=== PATIENT | female | born 1975 | race Asian ===

== ENCOUNTER 2018-04-20 15:39 | Outpatient (CLI) | payer BC ==
--- NOTE | 2018-04-21 09:19 | XRAY Report ---
Reason: LT KNEE PAIN Procedure Date: 04/20/2018 Accession Number: [id number] / [id number] Procedure: XR - Knee 3 View LT CPT Code: FULL RESULT: EXAM: LEFT KNEE RADIOGRAPHY EXAM DATE: 04/20/2018 03:53 PM. CLINICAL HISTORY: Left knee pain. COMPARISON: None. TECHNIQUE: 3 views. FINDINGS: Bones: Normal. No fractures or bone lesions. Joints: Subtle soft tissue density is seen on the sunrise view in the joint compartment along the lateral patellar facet. There is a small joint effusion. No subluxations. Mild joint space narrowing of the weightbearing compartments, medial greater than lateral. Soft Tissues: Normal. No soft tissue swelling. IMPRESSION: Small joint effusion with calcific density seen intra-articularly. RADIA
== END 2018-04-20 15:40 | disposition home or self-care (01) ==
LOC: DI 15:39
PROVIDERS: ATTEND Physician Assistant
DX: M25.462 Effusion, left knee (principal); M25.862 Other specified joint disorders, left knee

== ENCOUNTER 2018-08-05 08:57 | Outpatient (CLI) | payer BC ==
--- NOTE | 2018-08-05 14:31 | Mammography Report ---
Reason: GALACTORRHEA Procedure Date: 08/05/2018 Accession Number: [id number] / [id number] Procedure: MARCIANO - Diagnostic Dig Bilat CPT Code: FULL RESULT: EXAM: Diagnostic Dig Bilat DATE: 08/05/2018 9:49 AM CLINICAL HISTORY: Right breast milky discharge since Thanksgiving. Palpable lump in the right breast axilla. Diagnostic exam. History of early menses. TECHNIQUE: Bilateral CC, laterally exaggerated CC and MLO views as well as a right ML view are obtained. Focused ultrasound was performed of the right axillary region. COMPARISON: 11/16/2017 through 05/08/2017. FINDINGS: The breasts demonstrate heterogeneously dense fibroglandular parenchyma bilaterally. No suspicious architectural distortion, calcifications or masses are identified in either breast. The palpable axillary finding is not included in the mammographic views. Therefore, focused ultrasound of the right axilla was performed. This demonstrated normal axillary tissue with no abnormal mass or collection. IMPRESSION: Negative examination RECOMMENDATION: Recommend routine annual Screening mammography unless otherwise clinically indicated. BIRADS CATEGORY 1: Negative STANDARD QUALIFYING STATEMENTS: 1. This examination was not reviewed with the aid of Computer-Aided Detection (CAD). 2. A negative or benign imaging report should not delay biopsy if clinically suspicious findings are present. Consider surgical consultation if warrented. More than 5% of cancers are not identified by imaging. 3. Dense breasts may obscure an underlying neoplasm. 4. This examination was reviewed with the aid of 3D imaging (tomography).
== END 2018-08-05 08:58 | disposition home or self-care (01) ==
LOC: DI 08:57
PROVIDERS: ATTEND Specialist
DX: N64.89 Other specified disorders of breast (principal); O92.6 Galactorrhea
CPT/HCPCS: 76642; 77062; 77066

== ENCOUNTER 2019-08-25 09:16 | Outpatient (CLI) | payer OTHER ==
--- NOTE | 2019-08-25 11:55 | Mammography Report ---
Reason: RT NIPPLE DISCHARGE Procedure Date: 08/25/2019 Accession Number: [id number] / [id number] Procedure: MARCIANO - Diagnostic Dig Bilat CPT Code: Final Report FULL RESULT: EXAM: Diagnostic Dig Bilat, Breast Unilateral Limited ultrasound right DATE: 08/25/2019 10:36 AM CLINICAL HISTORY: Bloody right nipple discharge COMPARISON: 08/05/2018, 11/16/2017, 05/18/2017 and 05/08/2017 MAMMOGRAM: TECHNIQUE: (B) - Bilateral CC and MLO views were obtained. Additional views right breast. PARENCHYMAL PATTERN: (D) - The breasts demonstrate heterogeneously dense fibroglandular parenchyma bilaterally. FINDINGS: Left breast: There are no suspicious masses, calcifications, or areas of distortion. No significant interval change. Right breast: Slightly asymmetric small soft tissue density in the immediate retroareolar right breast MLO iris 58, ML iris 29, CC iris 29. Otherwise no architectural distortion, skin thickening, suspicious microcalcifications or other finding. RIGHT BREAST ULTRASOUND: TECHNIQUE: Real time scanning by the dust box worker of the immediate retroareolar right breast with me present with saved static images reviewed. The left retroareolar region was scanned for comparison. FINDINGS: No cystic or solid mass, abnormal fluid collection, abnormal vascularity, or other finding is seen. IMPRESSION: Probably Benign. BI-RADS category 3 right breast. Negative left breast. RECOMMENDATION: (6MOS) - Recommend 6 month follow-up exam. Suggest follow-up right breast mammogram and ultrasound in 6 months if bloody nipple discharge persists. Consider surgical referral for persistent bloody nipple discharge. BI-RADS CATEGORY: (3) - Probably Benign. STANDARD QUALIFYING STATEMENTS: 1. This examination was not reviewed with the aid of Computer-Aided Detection (CAD). 2. A negative or benign imaging report should not preclude biopsy if clinically suspicious findings are present. 3. Dense breasts may obscure an underlying neoplasm. 4. This examination was reviewed with the aid of 3D breast imaging (tomosynthesis).
== END 2019-08-25 09:17 | disposition home or self-care (01) ==
LOC: DI 09:16
PROVIDERS: ATTEND Family Medicine
DX: N64.52 Nipple discharge (principal)
CPT/HCPCS: 76642; 77066

== ENCOUNTER 2019-10-14 15:31 | Outpatient (CLI) | payer OTHER | END 2019-10-14 15:32 | disposition home or self-care (01) | LOC: LAB 15:31 | PROVIDERS: ATTEND Surgery | DX: Z01.812 Encounter for preprocedural laboratory examination (principal); N63.0 Unspecified lump in unspecified breast; N64.52 Nipple discharge | CPT/HCPCS: 81599 ==

== ENCOUNTER 2019-10-18 07:26 | Day surgery (SDC) | payer OTHER ==
[2019-10-18] MEDS ORDERED: fentaNYL 100 MCG/2 ML VIAL IVP ONE (07:27)
[2019-10-18] MEDS ORDERED: KETAMINE 500 MG/10 ML VIAL IVP ONE (07:27)
[2019-10-18] MEDS ORDERED: MIDAZOLAM 2 MG/2 ML VIAL IVP ONE (07:27)
[2019-10-18] MEDS ORDERED: PROPOFOL 200 MG/20 ML VIAL IVP ONE (07:27)
[2019-10-18 07:31] LABS: HCG UR QUAL NEGATIVE
--- NOTE | 2019-10-18 07:34 | ANESTHESIA ---
Pre-Anesthesia VS, & Labs - Diagnosis right breast mass, drainage - Procedure right breast biopsy Vital Signs: Temp Pulse Resp BP Pulse Ox 36.6 C 71 12 112/92 H 99 10/18/19 07:30 10/18/19 07:30 10/18/19 07:30 10/18/19 07:30 10/18/19 07:30 Height 5 ft 2 in Weight (kg) 74 kg - NPO >8 hours - Is Patient ?: No Home Medications and Allergies Home Medications: Ambulatory Orders Topiramate [Topamax] 25 mg PO 10/17/19 hydroCHLOROthiazide [Hydrochlorothiazide] 25 mg PO 10/17/19 Topiramate [Topamax] 25 mg PO 10/17/19 hydroCHLOROthiazide [Hydrochlorothiazide] 25 mg PO 10/17/19 Allergies/Adverse Reactions: Allergies Allergy/AdvReac Type Severity Reaction Status Date / Time No Known Drug Allergies Allergy Verified 10/17/19 14:23 Anes History & Medical History - Anesthetic History Anesthesia Complications: reports: Post-Operative Nausea/Vomiting, Other-see comment ("difficulty waking up") Family history of Anesthesia Complications: Denies Family history of Malignant Hyperthermia: Denies - Medical History Cardiovascular: reports: Hypertension Pulmonary: reports: None Gastrointestinal: reports: None Urinary: reports: None Neuro: reports: None Musculoskeletal: reports: None Endocrine/Autoimmune: reports: None Blood Disorders: reports: None Skin: reports: None Smoking Status: Never smoker Psychosocial: reports: No issues indicated - Surgical History General: Cholecystectomy Eyes Ears Nose Throat (EENT): Tonsil/Adenoidectomy Orthopedic: ACL reconstruction, Rotator cuff repair Exam General: Alert, Oriented x3, Cooperative, No acute distress Dental: WNL Mouth Openin Fingerbreadth Mallampati classification: II Thyromental Distance: 4-6 cm Respiratory: Lungs clear, Normal breath sounds, No respiratory distress, No accessory muscle use Cardiovascular: Regular rate, Normal S1, Normal S2, No murmurs Abdomen: Normal bowel sounds, Soft, No tenderness, No hepatospenomegaly, No masses Extremities: No clubbing, No cyanosis, No edema, Normal pulses, No tenderness/swelling Neurological: Normal gait, Normal speech, Strength at 5/5 X4 ext, Normal tone, Sensation intact, Cranial nerves 3-12 NL, Reflexes 2+ Mental/Cognitive Status: Alert/Oriented X3, Normal for patient Cognitive Status: Within normal limits Plan Anesthesia Type: General Consent for Procedure(s) Verified and Reviewed: Yes Code Status: Attempt Resuscitation ASA classification: 2-Mild systemic disease Is this case an emergency?: No
[2019-10-18] MEDS ORDERED: SCOPOLAMINE PATCH TOP ONE (07:43)
[2019-10-18] MEDS ORDERED: LACTATED RINGERS 1,000 ML IV ONE ×2 (07:54→10:12)
[2019-10-18] MEDS ORDERED: BUPIVACAINE 0.25% PF 30 ML VIAL ONE (08:11)
[2019-10-18] MEDS ORDERED: LIDOCAINE 1% 50 ML MDV SUBQ ONE ×2 (08:42)
[2019-10-18] MEDS ORDERED: BUPIVACAINE 0.25% PF 30 ML VIAL SUBQ ONE ×2 (08:42)
[2019-10-18] MEDS ORDERED: LIDOCAINE 1% 50 ML MDV ONE (08:44)
[2019-10-18] MEDS ORDERED: ACETAMINOPHEN 325 MG TABLET PO PRN (09:33)
[2019-10-18] MEDS ORDERED: oxyCODONE 5 MG TABLET PO PRN (09:33)
[2019-10-18] MEDS ORDERED: IBUPROFEN 600 MG TABLET PO PRN (09:33)
[2019-10-18] MEDS ORDERED: ONDANSETRON 4 MG/2 ML VIAL IVP PRN (09:33)
[2019-10-18] MEDS ORDERED: ONDANSETRON 4 MG/2 ML VIAL ONE (09:54)
[2019-10-18 11:21] VITALS: BP 95/64
--- NOTE | 2019-10-18 11:24 | PROCEDURE REPORT ---
DATE OF SERVICE: 10/18/2019 Physician: Gibson Craig MD DATE OF SURGERY: 10/18/2019. PREOPERATIVE DIAGNOSIS: Persistent right breast bloody nipple discharge. Possible mass based on ultrasound. POSTOPERATIVE DIAGNOSIS: Persistent right breast bloody nipple discharge. Possible mass based on ultrasound. PROCEDURE PERFORMED: Right breast biopsy. SURGEON: Alexandru Craig MD CUSTOMER SERVICE CASHIER: None. ANESTHESIA: Monitored anesthesia care, IV sedation, local anesthesia with lidocaine and Marcaine. SPECIMEN: Sent permanent for pathology. ESTIMATED BLOOD LOSS: Less than 10 mL DRAINS: None. COMPLICATIONS: None. INDICATIONS FOR PROCEDURE: The patient is a healthy 43-year-old who has had bloody nipple discharge for approximately 1 year. Mammogram was unremarkable. Ultrasound revealed a possible mass. She has daily drainage. The drainage is from a specific duct. Excisional biopsy was recommended. Risks discussed. Alternatives discussed. All questions answered and consent obtained. DESCRIPTION OF PROCEDURE: The patient was properly identified, brought to the operating room and placed in supine position. Monitored anesthesia care was given. She was prepped and draped in a sterile fashion. Antibiotics were not given. Local anesthetic was given to the area. A lacrimal probe was placed down the duct with a bloody nipple discharge. A 3-4 cm circumareolar incision was made. Dissection proceeded with cutting current. A small flap around the areola and under the nipple towards the the duct of concern was raised. Approximately 3 x 3 cm of tissue with the involved duct was removed with cutting current. Hemostasis was assured. Deep dermis was closed with interrupted 3-0 Vicryl. Skin was closed with a running 4-0 Monocryl subcuticular suture. Dermabond was applied. She tolerated the procedure very well. TD: 10/18/2019 10:43 WU
== END 2019-10-18 07:27 | disposition home or self-care (01) ==
LOC: SDS 07:26
PROVIDERS: ATTEND Surgery
PROC: 0HBW0ZX Excision of Right Nipple, Open Approach, Diagnostic (ICD-10-PCS; principal; 2019-10-18 08:15)
DX: D24.1 Benign neoplasm of right breast (principal); I10 Essential (primary) hypertension
CPT/HCPCS: 19101; 81025; 88305; 88341; 88342; 88360; J3490; J7120

== ENCOUNTER 2020-08-17 10:31 | Outpatient (CLI) | payer OTHER ==
--- NOTE | 2020-08-20 12:40 | Mammography Report ---
BILATERAL DIGITAL DIAGNOSTIC MAMMOGRAM 3D/2D: 08/17/2020 CLINICAL: Follow-up biopsy. Comparison is made to exams dated: 08/25/2019 mammogram, 08/05/2018 mammogram, 11/16/2017 mammogram, 07/31 ultrasound, and 08/05/2018 ultrasound - [facility]. The tissue of both breast s is heterogeneously dense. This may lower the sensitivity of mammography. No significant masses, calcifications, or other findings are seen in either breast. There has been no significant interval change. IMPRESSION: NEGATIVE There is no mammographic evidence of malignancy. A 1 year screening mammogram is recommended. This exam was interpreted at Station ID: [id number]. NOTE: For mammograms, a report in lay terms will be sent to the patient. Approximately 15% of breast malignancies will not be visualized mammographically. In the management of a palpable breast mass, a negative mammogram must not discourage biopsy of a clinically suspicious lesion. Electronically Signed By: Ernesto Lora M.D., jr/dee:08/17/2020 11:13:53 ACR BI-RADS Category 1: Negative 3341F PARENCHYMAL PATTERN: (D) - The breast(s) demonstrate(s) heterogeneously dense fibroglandular parsusan ma. BI-RADS CATEGORY: (1) - 1 RECOMMENDATION: (ANNUAL) - Recommend routine annual screening mammography. [id number] 1 year screening LATERALITY: (B)
== END 2020-08-17 10:32 | disposition home or self-care (01) ==
LOC: DI 10:31
PROVIDERS: ATTEND Physician Assistant
DX: Z12.39 Encounter for other screening for malignant neoplasm of breast (principal); N63.10 Unspecified lump in the right breast, unspecified quadrant; N64.52 Nipple discharge

== ENCOUNTER 2022-10-14 11:28 | Outpatient (CLI) | payer OTHER ==
--- NOTE | 2022-10-14 14:23 | Ultrasound Report ---
PROCEDURE: Pelvic w/Transvaginal INDICATIONS: EXCESSIVE AND FREQUENT MENSTRUATION WITH REGULAR C TECHNIQUE: Real-time scanning was performed of the pelvic organs, with image documentation. Additional endovagi nal scanning was necessary due to incomplete visualization of the adnexal and endometrial structures by transabdominal scanning. COMPARISON: None. FINDINGS: Uterus: Uterus is retroverted and mildly enlarged in size at 8 4 4 x 6.0 x 6.6 cm. The myometrium i s heterogeneous. The endometrium measures 6 mm in combined thickness. There is an anterior subseros al fibroid measuring 1.4 x 1.3 x 1.3 cm Ovaries: The right ovary measures 1.6 x 1.1 x 1.4 cm, with a calculated ovarian volume of 1.3 cc. T he left ovary measures 2.3 x 1.4 x 1.5 cm, with a calculated ovarian volume of 2.6 cc. The ovaries h ave a normal sonographic appearance. Less than 12 follicles can be seen in each ovary. No adnexal m asses are seen. No cystic lesions measuring greater than 3 cm. Other: No pathologic free abdominal or pelvic fluid. IMPRESSION: The uterus is heterogeneous in appearance and mildly enlarged with an appearance suggesting possible adenomyosis. There is an incidental small subserosal fibroid. Otherwise unremarkable study. Reviewed by: Lenard Anderson MD on 10/14/2022 2:22 PM PDT Approved by: Lenard Anderson MD on 10/14/2022 2:22 PM PDT Station ID: [id number]
== END 2022-10-14 11:29 | disposition home or self-care (01) ==
LOC: DI 11:28
PROVIDERS: ATTEND Physician Assistant
DX: N85.2 Hypertrophy of uterus (principal); D25.2 Subserosal leiomyoma of uterus; N92.0 Excessive and frequent menstruation with regular cycle; N91.5 Oligomenorrhea, unspecified

== ENCOUNTER 2023-05-04 15:59 | Outpatient (CLI) | payer OTHER ==
[2023-05-04 16:11] LABS: BASOPHILS # (AUTO) 0.1 10^3/uL (0.0-0.1); BASOPHILS % (AUTO) 0.6 %; EOSINOPHILS # (AUTO) 0.5 10^3/uL (0.0-0.7); EOSINOPHILS % (AUTO) 5.1 %; HCT - HEMATOCRIT 38.5 % (37.0-47.0); HGB - HEMOGLOBIN 12.6 g/dL (12.0-16.0); LYMPHOCYTES # (AUTO) 1.8 10^3/uL (1.5-3.5); LYMPHOCYTES % (AUTO) 18.7 %; MEAN CORPUSCULAR HEMOGLOBIN 28.4 pg (27.0-31.0); MEAN CORPUSCULAR HGB CONC 32.7 g/dL (32.0-36.0); MEAN CORPUSCULAR VOLUME 86.7 fL (81.0-99.0); MEAN PLATELET VOLUME 8.8 fL (7.9-10.8); MONOCYTES # (AUTO) 0.6 10^3/uL (0.0-1.0); MONOCYTES % (AUTO) 6.5 %; NEUTROPHILS # (AUTO) 6.4 10^3/uL (1.5-6.6); PLT - PLATELET COUNT 317 10^3/uL (130-450); RED BLOOD COUNT 4.44 10^6/uL (4.20-5.40); RED CELL DISTRIBUTION WIDTH 13.1 % (12.0-15.0); WHITE BLOOD COUNT 9.4 x10^3/uL (4.8-10.8)
[2023-05-04 16:48] LABS: ALBUMIN 4.5 g/dL (3.2-5.5); ALBUMIN/GLOBULIN RATIO 1.7 (1.0-2.2); BILIRUBIN,TOTAL 0.3 mg/dL (0.2-1.0); CALCIUM 9.8 mg/dL (8.5-10.3); CREATININE 0.8 mg/dL (0.6-1.3); POTASSIUM 2.9 mmol/L (3.5-4.5); TOTAL PROTEIN 7.1 g/dL (6.4-8.9)
== END 2023-05-04 16:00 | disposition home or self-care (01) ==
LOC: LAB 15:59
PROVIDERS: ATTEND Obstetrics & Gynecology
DX: Z01.812 Encounter for preprocedural laboratory examination (principal); N93.9 Abnormal uterine and vaginal bleeding, unspecified
CPT/HCPCS: 36415; 80053; 85025; 86850; 86900; 86901

== ENCOUNTER 2023-05-05 07:21 | Day surgery (SDC) | payer OTHER ==
[2023-05-05] MEDS ORDERED: CELECOXIB 100 MG CAPSULE PO ONE (07:30)
[2023-05-05] MEDS ORDERED: ACETAMINOPHEN 500 MG TABLET PO ONE (07:30)
[2023-05-05] MEDS ORDERED: GABAPENTIN 400 MG CAPSULE ONE (07:30)
[2023-05-05] MEDS ORDERED: POTASSIUM CHLORIDE INJ 40 MEQ in SODIUM CHLORIDE 0.9% 500 ML IV ONE (07:33)
[2023-05-05] MEDS ORDERED: SCOPOLAMINE PATCH TOP ONE (07:37)
[2023-05-05 08:13] LABS: HCG UR QUAL NEGATIVE
[2023-05-05] MEDS ORDERED: LACTATED RINGERS 1,000 ML IV ONE ×2 (08:18→12:01)
[2023-05-05] MEDS ORDERED: PROPOFOL 200 MG/20 ML VIAL IVP ONE ×2 (08:24→11:54)
[2023-05-05] MEDS ORDERED: fentaNYL 100 MCG/2 ML VIAL ONE (08:24)
[2023-05-05] MEDS ORDERED: MIDAZOLAM 2 MG/2 ML VIAL ONE (08:24)
[2023-05-05] MEDS ORDERED: LIDOCAINE-PF 2% 10 ML AMP SUBQ ONE (08:24)
[2023-05-05] MEDS ORDERED: DEXAMETHASONE 4 MG/ML VIAL ONE (08:25)
[2023-05-05] MEDS ORDERED: KETOROLAC 30 MG/ML VIAL ONE (08:25)
[2023-05-05] MEDS ORDERED: ONDANSETRON 4 MG/2 ML VIAL ONE (08:25)
[2023-05-05] MEDS ORDERED: diphenhydrAMINE INJ 50 MG/ML VIAL ONE (08:25)
[2023-05-05] MEDS ORDERED: ROCURONIUM 50 MG/5 ML VIAL ONE ×2 (08:25→10:34)
[2023-05-05] MEDS ORDERED: METHYLENE BLUE 0.5% 50 MG/10 ML AMPULE ONE (08:28)
[2023-05-05] MEDS ORDERED: ESTROGENS, CONJUGATED CREAM 30 GM TUBE ONE (08:29)
[2023-05-05] MEDS ORDERED: VASOPRESSIN 20 UNIT/ML VIAL ONE (08:29)
[2023-05-05] MEDS ORDERED: LIDOCAINE 1%-EPI 1:100000 20 ML MDV ONE (08:29)
[2023-05-05] MEDS ORDERED: METOCLOPRAMIDE 10 MG/2 ML VIAL IVP PRN ×2 (08:50→12:31)
[2023-05-05] MEDS ORDERED: NALOXONE 0.4 MG/ML VIAL IVP PRN (08:50)
[2023-05-05] MEDS ORDERED: ONDANSETRON 4 MG/2 ML VIAL IVP PRN ×2 (08:50→12:29)
[2023-05-05] MEDS ORDERED: fentaNYL 100 MCG/2 ML VIAL IVP PRN (08:50)
[2023-05-05] MEDS ORDERED: ATROPINE ABBOJECT 1 MG/10 ML SYRINGE IVP PRN (08:50)
[2023-05-05] MEDS ORDERED: MORPHINE 2 MG/ML CARPUJECT IVP PRN (08:50)
[2023-05-05] MEDS ORDERED: ePHEDrine 50 MG/ML VIAL IVP PRN (08:50)
[2023-05-05] MEDS ORDERED: LACTATED RINGERS 1,000 ML IV SCH (09:00)
[2023-05-05] MEDS ORDERED: ceFAZolin 1 GM VIAL ONE (09:34)
[2023-05-05] MEDS ORDERED: LIDOCAINE 1%-EPI 1:100000 30 ML MDV SUBQ ONE (09:58)
[2023-05-05] MEDS ORDERED: GLYCOPYRROLATE 1 MG/5 ML VIAL ONE (10:36)
[2023-05-05] MEDS ORDERED: SUGAMMADEX 200 MG/2 ML VIAL IVP ONE (11:24)
--- NOTE | 2023-05-05 12:09 | OPERATIVE REPORT ---
Operative Report - General Procedure Date: 05/05/23 Planned Procedure: TVH Pre-Op Diagnosis: abnormal uterine bleeding Procedure Performed: TVH Post Op Diagnosis: same as above - Procedure Note Primary Surgeon: ronald Secondary Surgeon: trevor Anesthesia Provider: TRES Chris Anesthesia Technique: General ET tube Pathology: uterus and cervix IV Fluids (mL): 1,200 Estimated Blood Loss (mL): 100 Urine Output (mL): 125 Findings: small normal appearing cervix mirena in place normal uterus no significant adhesions no adnexal masses Complications: none - Other Other Information/Narrative: OPERATIVE NOTE Pre-operative diagnosis: 1. Dysfunctional uterine bleeding 2. Failed conservative measures Procedure: Total vaginal hysterectomy Post-operative diagnosis: Same as above Surgeon: Ronald Engineering Recruiter: Trevor Anesthesia: General Findings: EUA: small uterus, no adnexal masses, normal cervix Speculum: normal vagina, normal cervix Pathology: normal appearing small uterus Specimen: uterus and cervix Complications: None apparent EBL: 50 UOP: 150 Dispo: Pt to PACU in stable condition Procedure in detail: After risks benefits and alternatives, as well as indication for procedure and anticipated post-operative recovery course, were discussed with the patient informed consent was obtained and patient was taken to the operating theater where general anesthesia was administered without complication. Pt placed in dorsal lithotomy position, SCDs in place and running, and bimanual exam revealed the aforementioned findings. Pt prepared and draped in normal sterile fashion, yancey catheter in place. Weighted speculum placed in posterior vagina, and anterior lip of cervix grasped with tenaculum. 15cc lidocaine with epinephrine used to hydrodissect vaginal mucosa off of cervix. Incision made with scalpel from 10' - 2' and 4' - 8' at vaginocervical junction. bladder dissected off of lower uterine segment. posterior fornyx entered without difficulty. pelvis examined, normal. sequentially clamped, cut, and ligated the vaginal mucosa, uterosacral ligaments, uterine artery, broad ligament, round ligament, and ovarian pedicle on both sides. uterus removed and sent to pathology. All pedicles inspected, hemostasis achieved after additional suture placed on R pedicle of broad ligament x2. posterior cuff sutured with 0 vicryl in running locked manner, Vaginal cuff closed with 2.0 vicryl in running locked manner. two additional 3.0 vicryl sutures placed for hemostasis. all hemostatic. irrigated. yancey removed. All counts correct. Pt awaked from anesthesia. Called patients partner to discuss case, as discussed with patient prior to start. Pt to PACU in stable condition. Dr. Bethea assistance was required for visualization, retraction, assistance, and her expertise was essential to the wellbeing of the patient.
[2023-05-05] MEDS: HYDROmorphone 0.5 MG/0.5 ML SYRINGE IVP PRN ×2 (12:25→12:30)
[2023-05-05] MEDS ORDERED: HYDROmorphone 0.5 MG/0.5 ML SYRINGE ONE (12:26)
[2023-05-05] MEDS ORDERED: SCOPOLAMINE PATCH TOP PRN (12:29)
[2023-05-05] MEDS ORDERED: oxyCODONE 5 MG TABLET PO PRN (12:29)
[2023-05-05] MEDS ORDERED: PROMETHAZINE 25 MG TABLET PO PRN (12:29)
[2023-05-05] MEDS: ACETAMINOPHEN 500 MG TABLET PO SCH ×2 (13:29→20:19)
--- NOTE | 2023-05-05 16:03 | ANESTHESIA POST OP EVALUATION ---
Anesthesia Post Eval - Post Anesthesia Eval Vitals: Last Vital Signs Temp 36.6 C 05/05/23 14:59 Pulse 71 05/05/23 14:59 Resp 16 05/05/23 14:59 BP 104/60 05/05/23 14:59 Pulse Ox 94 05/05/23 14:59 O2 Flow Rate CV Function Including HR & BP: Stable Pain Control: Satisfactory Nausea & Vomiting: Negative Mental Status: Baseline Respiratory Status: Airway Patent Hydration Status: Satisfactory Anesthesia Complications: None
[2023-05-05] MEDS: IBUPROFEN 600 MG TABLET PO SCH (17:41)
[2023-05-05] MEDS: DOCUSATE SODIUM 100 MG CAPSULE PO SCH (20:21)
[2023-05-06] MEDS: IBUPROFEN 600 MG TABLET PO SCH ×4 (00:54→12:09)
[2023-05-06] MEDS: ACETAMINOPHEN 500 MG TABLET PO SCH ×2 (04:58→12:53)
[2023-05-06 05:45] LABS: BASOPHILS % (AUTO) 0.2 %; EOSINOPHILS # (AUTO) 0.1 10^3/uL (0.0-0.7); EOSINOPHILS % (AUTO) 0.7 %; HCT - HEMATOCRIT 34.7 % (37.0-47.0); HGB - HEMOGLOBIN 11.3 g/dL (12.0-16.0); LYMPHOCYTES # (AUTO) 2.4 10^3/uL (1.5-3.5); LYMPHOCYTES % (AUTO) 23.3 %; MEAN CORPUSCULAR HEMOGLOBIN 28.5 pg (27.0-31.0); MEAN CORPUSCULAR HGB CONC 32.6 g/dL (32.0-36.0); MEAN CORPUSCULAR VOLUME 87.4 fL (81.0-99.0); MEAN PLATELET VOLUME 9.1 fL (7.9-10.8); MONOCYTES # (AUTO) 0.8 10^3/uL (0.0-1.0); MONOCYTES % (AUTO) 8.1 %; NEUTROPHILS # (AUTO) 6.9 10^3/uL (1.5-6.6); NEUTROPHILS % (AUTO) 67.5 %; PLT - PLATELET COUNT 286 10^3/uL (130-450); RED BLOOD COUNT 3.97 10^6/uL (4.20-5.40); RED CELL DISTRIBUTION WIDTH 13.7 % (12.0-15.0); WHITE BLOOD COUNT 10.3 x10^3/uL (4.8-10.8)
[2023-05-06] MEDS: DOCUSATE SODIUM 100 MG CAPSULE PO SCH (09:11)
[2023-05-06 09:24] VITALS: O2SAT 98
--- NOTE | 2023-05-06 13:23 | DISCHARGE SUMMARY ---
"Discharge Summary Admit Date: 05/05/23 Discharge Date: 05/06/23 Discharging Provider: naomy Primary Care Provider: naomy Code Status: Attempt Resuscitation Condition at Discharge: Good Discharge Disposition: 01 Home, Self Care - DIAGNOSES Admission Diagnoses: abnormal uterine bleeding post op TVH Discharge Diagnoses with Status of Each Condition: AUB - s/p TVH all milestones met, ready for D/C - HPI History of Present Illness: pt doing well amb, void, pass flat, susan PO, pain controlled with oral meds no vaginal bleeding discharge instructions and precautions reviewed all questions answered. ready to D/C home. - CONSULTS | PROCEDURES Procedures: TVH post op care - HOSPITAL COURSE Hospital Course: pt admitted for post op recovery from uncomplicated TVH. all post op milestones met ready for D/C home. - ALLERGIES Allergies/Adverse Reactions: Allergies Allergy/AdvReac Type Severity Reaction Status Date / Time No Known Drug Allergies Allergy Verified 05/05/23 09:43 - MEDICATIONS Home Medications: Ambulatory Orders Medication Instructions Recorded Confirmed hydroCHLOROthiazide 25 mg PO DAILY 10/17/19 05/05/23 [Hydrochlorothiazide] Ibuprofen [Motrin] 600 mg PO Q6H PRN 04/30/23 04/30/23 - PHYSICAL EXAM AT DISCHARGE General Appearance: positive: No acute distress, Alert Eyes Bilateral: positive: Normal inspection ENT: positive: ENT inspection nml Neck: positive: Nml inspection Respiratory: positive: Chest non-tender, No respiratory distress, Breath sounds nml Cardiovascular: positive: Regular rate & rhythm, No murmur, No gallop Abdomen: positive: Non-tender, No organomegaly, Nml bowel sounds, No distention Skin: positive: Color nml, No rash, Warm, Dry Extremities: positive: No pedal edema Neurologic/Psychiatric: positive: Oriented x3, Mood/affect nml - LABS Result Diagrams: 05/06/23 13:42 - QUALITY (Female Hip Fx Only) Was patient sent home on osteoporosis medication?: No - FOLLOW UP Follow Up: [address] Cardenas - TIME SPENT Time Spent in Discharge (Minutes): 30"
[2023-05-06 13:50] VITALS: BP 109/66
[2023-05-06 13:52] LABS: BASOPHILS % (AUTO) 0.3 %; EOSINOPHILS # (AUTO) 0.2 10^3/uL (0.0-0.7); EOSINOPHILS % (AUTO) 2.4 %; HCT - HEMATOCRIT 32.6 % (37.0-47.0); HGB - HEMOGLOBIN 10.3 g/dL (12.0-16.0); LYMPHOCYTES # (AUTO) 2.9 10^3/uL (1.5-3.5); LYMPHOCYTES % (AUTO) 38.4 %; MEAN CORPUSCULAR HEMOGLOBIN 27.9 pg (27.0-31.0); MEAN CORPUSCULAR HGB CONC 31.6 g/dL (32.0-36.0); MEAN CORPUSCULAR VOLUME 88.3 fL (81.0-99.0); MEAN PLATELET VOLUME 8.8 fL (7.9-10.8); MONOCYTES # (AUTO) 0.6 10^3/uL (0.0-1.0); MONOCYTES % (AUTO) 8.3 %; NEUTROPHILS # (AUTO) 3.8 10^3/uL (1.5-6.6); NEUTROPHILS % (AUTO) 50.3 %; PLT - PLATELET COUNT 245 10^3/uL (130-450); RED BLOOD COUNT 3.69 10^6/uL (4.20-5.40); RED CELL DISTRIBUTION WIDTH 13.7 % (12.0-15.0); WHITE BLOOD COUNT 7.5 x10^3/uL (4.8-10.8)
--- NOTE | 2023-05-06 14:12 | Discharge Plan ---
Discharge Plan Problem Reviewed?: Yes Disposition: Home, Self Care Condition: Good Prescriptions: Ibuprofen [Motrin] 600 mg PO Q6HR #60 tab Acetaminophen [Tylenol] 1,000 mg PO Q8H #60 tab Diet: Regular Activity Restrictions: No Restrictions Shower Restrictions: No Driving Restrictions: No (of course better if someone else drives.) Weight Bearing: Full Weight Instruction Topics: Surgical Safety Maximize, Hysterectomy Vaginal Dc Health Concerns: post op care Plan of Treatment: routine post op care No Smoking: If you smoke, Please STOP! Call for help. Follow-up with: Sarmad Saldaña DO [Primary Care Provider] -
--- NOTE | 2023-05-11 09:00 | ANESTHESIA POST OP EVALUATION ---
Anesthesia Post Eval - Post Anesthesia Eval Vitals: Last Vital Signs Temp 37.2 C 05/06/23 13:41 Pulse 61 05/06/23 13:41 Resp 18 05/06/23 13:41 BP 109/66 05/06/23 13:41 Pulse Ox 98 05/06/23 09:12 O2 Flow Rate CV Function Including HR & BP: Stable Pain Control: Satisfactory Nausea & Vomiting: Negative Mental Status: Baseline Respiratory Status: Airway Patent Hydration Status: Satisfactory Anesthesia Complications: None
--- NOTE | 2023-05-11 14:37 | ANESTHESIA ---
Pre-Anesthesia VS, & Labs - Diagnosis abnormal uterine bleeding - Procedure TVH Vital Signs: Temp Pulse Resp BP Pulse Ox O2 Flow Rate 37.2 C 61 18 109/66 98 05/06/23 13:41 05/06/23 13:41 05/06/23 13:41 05/06/23 13:41 05/06/23 09:12 Height: 5 ft 2 in Weight (kg): 79.2 kg Body Mass Index: 31.9 BMI Classification: Obese - NPO >8 hours - Is Patient ?: No - Lab Results Current Lab Results: Laboratory Tests 05/06/23 13:42: WBC 7.5, RBC 3.69 L, Hgb 10.3 L, Hct 32.6 L, MCV 88.3, MCH 27.9, MCHC 31.6 L, RDW 13.7, Plt Count 245, MPV 8.8, Neut # (Auto) 3.8, Lymph # (Auto) 2.9, Jerauld # (Auto) 0.6, Eos # (Auto) 0.2, Baso # (Auto) 0.0, Absolute Nucleated RBC 0.00, Nucleated RBC % 0.0 05/06/23 05:08: WBC 10.3, RBC 3.97 L, Hgb 11.3 L, Hct 34.7 L, MCV 87.4, MCH 28.5, MCHC 32.6, RDW 13.7, Plt Count 286, MPV 9.1, Neut # (Auto) 6.9 H, Lymph # (Auto) 2.4, Jerauld # (Auto) 0.8, Eos # (Auto) 0.1, Baso # (Auto) 0.0, Absolute Nucleated RBC 0.00, Nucleated RBC % 0.0 05/05/23 08:11: POC Whole Bld Glucose 104 H Fish Bones: 05/06/23 13:42 Home Medications and Allergies Home Medications: Ambulatory Orders Ibuprofen [Motrin] 600 mg PO Q6H PRN 04/30/23 hydroCHLOROthiazide [Hydrochlorothiazide] 25 mg PO DAILY 10/17/19 Ibuprofen [Motrin] 600 mg PO Q6H PRN 04/30/23 Allergies/Adverse Reactions: Allergies Allergy/AdvReac Type Severity Reaction Status Date / Time No Known Drug Allergies Allergy Verified 05/05/23 09:43 Anes History & Medical History - Anesthetic History Anesthesia Complications: reports: No previous complications Family history of Anesthesia Complications: Denies Family history of Malignant Hyperthermia: Denies - Medical History Cardiovascular: reports: Hypertension Pulmonary: reports: None Gastrointestinal: reports: None Urinary: reports: None Neuro: reports: None Musculoskeletal: reports: Osteoarthritis, Gout Endocrine/Autoimmune: reports: None Blood Disorders: reports: None Skin: reports: None Smoking Status: Never smoker - Surgical History General: reports: Cholecystectomy, Other Eyes Ears Nose Throat (EENT): reports: Tonsil/Adenoidectomy Orthopedic: reports: ACL reconstruction, Rotator cuff repair Exam General: Alert, Oriented x3, Cooperative Dental: WNL Mouth Openin Fingerbreadth Neck Mobility: Normal Mallampati classification: II Thyromental Distance: less than 4 cm Respiratory: Lungs clear Cardiovascular: Regular rate Plan Anesthesia Type: General Consent for Procedure(s) Verified and Reviewed: Yes Code Status: Attempt Resuscitation ASA classification: 2-Mild systemic disease Is this case an emergency?: No
== END 2023-05-06 14:50 | disposition home or self-care (01) ==
LOC: SDS 07:21 → MS2 13:13 → SDS 05-06 14:50
PROVIDERS: ATTEND Obstetrics & Gynecology
PROC: 0UT97ZZ Resection of Uterus, Via Natural or Artificial Opening (ICD-10-PCS; principal; 2023-05-05 08:30)
DX: N93.9 Abnormal uterine and vaginal bleeding, unspecified (principal); N93.8 Other specified abnormal uterine and vaginal bleeding; E66.9 Obesity, unspecified; I10 Essential (primary) hypertension; Z32.02 Encounter for pregnancy test, result negative; Z68.31 Body mass index [BMI] 31.0-31.9, adult
CPT/HCPCS: 36415; 58260; 81025; 85025; A9270; J1170; J1200; J3490; J7120; Q0169

== ENCOUNTER 2023-05-13 14:21 | Outpatient (CLI) | payer OTHER ==
--- NOTE | 2023-05-13 15:54 | XRAY Report ---
PROCEDURE: Chest 2 View X-Ray INDICATIONS: CHEST PRESSURE TECHNIQUE: 2 views of the chest were acquired. COMPARISON: None. FINDINGS: Surgical changes and devices: None. Lungs and pleura: No pleural effusions or pneumothorax. Lungs are clear. Mediastinum: Mediastinal contours appear normal. Heart size is normal. Bones and chest wall: No suspicious bony lesions. Overlying soft tissues appear unremarkable. IMPRESSION: No acute cardiopulmonary process. Reviewed by: Lenard Anderson MD on 05/13/2023 3:52 PM [facility] Approved by: Lenard Anderson MD on 05/13/2023 3:52 PM [facility] Station ID: [id number]
== END 2023-05-13 14:22 | disposition home or self-care (01) ==
LOC: DI 14:21
PROVIDERS: ATTEND Physician Assistant
DX: R07.89 Other chest pain (principal)

== ENCOUNTER 2023-06-10 15:30 | Outpatient (CLI) | payer OTHER | END 2023-06-10 15:45 | disposition home or self-care (01) | LOC: LAB.N 15:30 | PROVIDERS: ATTEND Family Medicine | DX: R30.0 Dysuria (principal) | CPT/HCPCS: 87086 ==

== ENCOUNTER 2023-08-06 18:51 | Outpatient (CLI) | payer OTHER ==
--- NOTE | 2023-08-07 07:31 | XRAY Report ---
PROCEDURE: Wrist 3+V LT INDICATIONS: OTHER SPECIFIED SPRAIN OF LEFT WRIST TECHNIQUE: 4 views of the wrist were acquired. COMPARISON: None. FINDINGS: Bones: No fractures or dislocations. Normal alignment. No suspicious bony lesions. Soft tissues: No suspicious soft tissue calcifications or masses. IMPRESSION: No acute bony abnormality. If there is anatomic snuff box tenderness, consider wrist immobilization a nd repeat radiographs in 10-14 days or cross-sectional imaging now. If pain persists with conservativ e management, consider repeat radiographs in 10-14 days or cross-sectional imaging. Reviewed by: Jose Menchaca MD on 08/07/2023 7:30 AM PST Approved by: Jose Menchaca MD on 08/07/2023 7:30 AM PST Station ID: [id number]
== END 2023-08-06 18:52 | disposition home or self-care (01) ==
LOC: DI 18:51
PROVIDERS: ATTEND Family Medicine
DX: S63.592A Other specified sprain of left wrist, initial encounter (principal)

== ENCOUNTER 2023-08-17 17:34 | Outpatient (CLI) | payer OTHER ==
--- NOTE | 2023-08-18 08:50 | XRAY Report ---
PROCEDURE: Wrist 3+V LT INDICATIONS: OTHER SPECIFIED SPRAIN OF LEFT WRIST TECHNIQUE: 4 views of the wrist were acquired. COMPARISON: 08/06/2023. FINDINGS: Bones: No fractures or dislocations. No suspicious bony lesions. Soft tissues: No suspicious soft tissue calcifications or masses. IMPRESSION: No acute bony abnormality. No signs of healing fracture. No radiographic evidence of avascular necros is. Reviewed by: Uday Nash MD on 08/18/2023 8:49 AM PDT Approved by: Uday Nash MD on 08/18/2023 8:49 AM PDT Station ID: [id number]
== END 2023-08-17 17:35 | disposition home or self-care (01) ==
LOC: DI 17:34
PROVIDERS: ATTEND Emergency Medicine
DX: S63.592A Other specified sprain of left wrist, initial encounter (principal)

== ENCOUNTER 2023-08-31 16:28 | Outpatient (CLI) | payer OTHER ==
--- NOTE | 2023-08-31 17:00 | XRAY Report ---
PROCEDURE: Wrist 3+V LT INDICATIONS: LEFT WRIST PAIN TECHNIQUE: 4 views of the wrist were acquired. COMPARISON: Left wrist radiograph on August 17, 2023 FINDINGS: Bones: No fractures or dislocations. No healing fracture. Normal alignment. No suspicious bony lesio ns. Soft tissues: No suspicious soft tissue calcifications or masses. IMPRESSION: No acute or healing bony abnormality. If clinical symptoms persist, consider MRI for further evaluati on. Reviewed by: Jose Menchaca MD on 08/31/2023 4:59 PM PDT Approved by: Jose Menchaca MD on 08/31/2023 4:59 PM PDT Station ID: [id number]
== END 2023-08-31 16:29 | disposition home or self-care (01) ==
LOC: DI 16:28
PROVIDERS: ATTEND Physician Assistant Surgical
DX: M25.532 Pain in left wrist (principal)

== ENCOUNTER 2023-09-19 15:54 | Outpatient (CLI) | payer OTHER ==
--- NOTE | 2023-09-20 17:18 | Ultrasound Report ---
PROCEDURE: Pelvic w/Transvaginal INDICATIONS: PELVIC PAIN TECHNIQUE: Real-time scanning was performed of the pelvic organs, with image documentation. Additional endovagi nal scanning was necessary due to incomplete visualization of the adnexal and endometrial structures by transabdominal scanning. COMPARISON: None. FINDINGS: Uterus: Hysterectomy. Ovaries: The right ovary is not visualized.. The left ovary measures 1.8 x 0.9 x 1.0 cm, with a marissa culated ovarian volume of 0.9 cc. The ovaries have a normal sonographic appearance. Less than 12 fo llicles can be seen in each ovary. No adnexal masses are seen. No cystic lesions measuring greater t soliz 3 cm. Other: No pathologic free abdominal or pelvic fluid. No visualized hernia. IMPRESSION: Hysterectomy. Nonvisualization of the right ovary. Remaining portions exam are unremarkable. Reviewed by: Bria Devlin MD on 09/20/2023 5:17 PM PDT Approved by: Bria Devlin MD on 09/20/2023 5:17 PM PDT Station ID: [id number]
== END 2023-09-19 15:55 | disposition home or self-care (01) ==
LOC: DI 15:54
PROVIDERS: ATTEND Obstetrics & Gynecology
DX: R10.2 Pelvic and perineal pain (principal); Z90.710 Acquired absence of both cervix and uterus

== ENCOUNTER 2023-09-29 06:58 | Outpatient (CLI) | payer OTHER ==
--- NOTE | 2023-09-29 10:35 | MRI Report ---
PROCEDURE: Wrist LT WO INDICATIONS: WRIST FX TECHNIQUE: Noncontrast coronal T1 spin echo, proton density fast spin echo and T2 fast spin echo with fat satura tion; coronal 3-D gradient echo, axial T1 spin echo and T2 fast spin echo with fat saturation, sagitt al T1 spin echo through the wrist. COMPARISON: Left wrist radiographs 08/31/2023. FINDINGS: Image quality: Excellent. Bones and cartilage: The carpal bones are normally aligned. No bone marrow contusions or fractures. No evidence for avascular necrosis. Carpal ligaments: The scapholunate and lunotriquetral ligaments appear intact. On sagittal images, the pisohamate ligament appears intact. Triangular fibrocartilage complex: Mildly hyperintense T2-weighted signal near the ulnar attachments of the jugular fibrocartilage are suspicious for partial tearing. No full-thickness triangular fibroc artilage tear is seen. Tendons and soft tissues: The carpal tunnel structures appear normal, including the median nerve. T he ulnar nerve appears normal within Guyon's canal. There is suspected low-grade partial tearing of the extensor carpi ulnaris tendon at the level of the ulnar styloid superimposed on chronic tendinosi s and trace tenosynovitis. The remaining extensor tendon compartments demonstrate normal morphology, without pathologic tendon sheath fluid. Lobular ganglion cyst is seen at the volar radial aspect of t he wrist measuring up to 10 x 4 x 4 mm. IMPRESSION: 1.No acute or healing osseous fracture is seen. 2.Low-grade partial intrasubstance tearing of the extensor carpi ulnaris tendon at the level of the u lnar styloid superimposed on chronic tendinosis and trace tenosynovitis. 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 4.Small lobular ganglion cyst at the volar radial aspect of the radiocarpal joint measuring up to 10 mm. Reviewed by: Royal Winters MD on 09/29/2023 10:34 AM PDT Approved by: Royal Winters MD on 09/29/2023 10:34 AM PDT Station ID: [id number]
== END 2023-09-29 06:59 | disposition home or self-care (01) ==
LOC: DI 06:58
PROVIDERS: ATTEND Physician Assistant Surgical
DX: S66.812A Strain of other specified muscles, fascia and tendons at wrist and hand level, left hand, initial encounter (principal); M67.432 Ganglion, left wrist